=== PATIENT | male | born 1970 | race Caucasian/White ===

== ENCOUNTER 2020-06-09 09:25 | Emergency (ER) | payer MEDICAID ==
[2020-06-09] MEDS ORDERED: KETOROLAC TROMETHAMINE 60 MG/2 ML VIAL ONE (11:53)
== END 2020-06-09 12:29 | disposition home or self-care (01) ==
LOC: EDH 09:25
DX: M65.311 Trigger thumb, right thumb (principal); Z88.8 Allergy status to other drugs, medicaments and biological substances; Z72.0 Tobacco use
CPT/HCPCS: 29125; 73140; 96372; 99283; J1885